=== PATIENT | female | born 1995 | race African-American/Black ===

== ENCOUNTER 2017-11-21 18:34 | Emergency (ER) | payer OTHER, SELFPAY ==
[2017-11-21] MEDS ORDERED: Acetaminophen 500 MG TAB ONE (19:19)
[2017-11-21 19:28] LABS: Bilirubin Negative (Negative); Blood, Urine Negative (Negative); Clarity CLEAR (Clear); Glucose, Urine (Dipstick) Negative (Negative); Leukocyte Negative (Negative); Nitrite Negative (Negative); Protein, Urine (Dipstick) Negative (Neg-Trace); Specific Gravity, Urine 1.015 (1.002-1.036); Urobilinogen 0.2 mg/dL (0.2-1.0); pH, Urine 5.5 (5.0-9.0)
[2017-11-21] MEDS ORDERED: Metoclopramide HCl 10 MG/2 ML VIAL ONE (21:23)
--- NOTE | 2017-11-21 23:32 | ULT ---
OBSTETRICAL ULTRASOUND 11/21/17 COMPARISON: None. HISTORY: 22-year-old female with pain and lower abdominal cramping. TECHNIQUE: Multiplanar shukla scale sonographic imaging of the gravid uterus obtained. FINDINGS: A twin gestation is noted. Fetus A demonstrates an oblique breech presentation with a heart rat e of 145 beats per minute. Placenta is located posteriorly demonstrating no evidence for previa or ab ruption. There is a heterogeneously hypoechoic mass associated with the uterus left of midline measuring 6.2 x 6.1 x 4.2 cm suggesting a uterine fibroid. Fetus B demonstrates a transverse presentation and a heart rate of 155 beats per minute. anatom y is not assessed on this examination. Cervical length is 4.6 cm, within normal limits. Amniotic flui d volume is qualitatively normal. BIOMETRY: Fetus A BPD 4.3 cm 19 weeks, 0 days HC 16.1 cm 18 weeks, 6 days AC 14.3 cm 19 weeks, 5 days FL 2.8 cm 18 weeks, 5 days Fetus B BPD 4.1 cm 18 weeks, 3 days HC 15.1 cm 18 weeks, 1 day AC 13.1 cm 18 weeks, 4 days FL 2.9 cm 18 weeks, 5 days Average age based on ultrasound for fetus A is 19 weeks, 1 day and for fetus B is 18 weeks, 3 days. E stimated weight for fetus A is 278 grams, +/- 41 grams. For fetus B is 248 grams +/- 37 grams. IMPRESSION: Twin gestation as above. POS: [facility]
== END 2017-11-21 23:19 | disposition home or self-care (01) ==
LOC: ERS 18:34
DX: O99.89 Other specified diseases and conditions complicating pregnancy, childbirth and the puerperium (principal); R10.30 Lower abdominal pain, unspecified; Z3A.18 18 weeks gestation of pregnancy; Z87.891 Personal history of nicotine dependence; Z79.82 Long term (current) use of aspirin; Z79.899 Other long term (current) drug therapy
CPT/HCPCS: 36415; 76810; 81003; 84702; 96361; 96374; J2765

== ENCOUNTER 2017-11-22 19:27 | Emergency (ER) | payer OTHER ==
[2017-11-22 19:53] LABS: Bilirubin Negative (Negative); Blood, Urine Negative (Negative); Clarity CLEAR (Clear); Glucose, Urine (Dipstick) Negative (Negative); Leukocyte Trace (Negative); Nitrite Negative (Negative); Protein, Urine (Dipstick) Negative (Neg-Trace); Specific Gravity, Urine 1.006 (1.002-1.036); Urobilinogen 0.2 mg/dL (0.2-1.0); pH, Urine 6.5 (5.0-9.0)
[2017-11-22 19:55] LABS: Bacteria/HPF Rare-Few HPF (None Seen); Hyaline Casts/LPF 0-3 HYALINE CAST LPF (0-3 Hyaline); Pathc Cast-AUWi Flag 0.13 (0-2.49); RBC/HPF 0-3 HPF (0-3); Squamous Epithelial 0-3 HPF (0-3); WBC/HPF 0-3 HPF (0-3)
[2017-11-22 20:12] LABS: Hemoglobin 10.5 g/dL (12.0-16.0); Mean Corpuscular HGB CONC 33.4 g/dL (32.0-36.0); Mean Corpuscular Hemoglobin 25.1 pg (27.0-31.0); Mean Platelet Volume 8.2 fL (7.4-10.4); Platelet Count 269 thou/uL (130-400); RBC Distribution Width 14.7 % (11.5-14.5); Red Blood Cell (RBC) Count 4.18 mill/uL (4.20-5.40); White Blood Cell (WBC) Count 9.4 thou/uL (4.8-10.8)
[2017-11-22 20:27] LABS: #Eosinphils 0.1 thou/uL (0.0-0.7); #Lymphocytes 1.6 thou/uL (1.20-3.40); #Monocytes 0.8 thou/uL (0.11-0.59); %Eosinophils 0.9 % (0.0-10.0); %Lymphocytes 16.7 % (21.0-51.0); %Neutrophils 74.4 % (42.0-75.0); MDiff Complete? YES; Microcytosis SLIGHT = 6-15 cells (100X) (0-5/hpf); PLT Morphology Comment Appears Adequate
[2017-11-22 20:29] LABS: BHCG - Serum POSITIVE (NEGATIVE); Pregs Control Background? CLEAR/WHITE (CLR/WHITE); Pregs Control Bar Appear? YES (CONTROL BAR)
[2017-11-22 20:31] LABS: ALT (SGPT) 14 U/L (8-55); AST (SGOT) 13 U/L (5-34); Albumin 3.8 g/dL (3.5-5.0); Alkaline Phosphatase 65 U/L (40-150); Anion Gap 17 mmol/L (10-20); BUN (Urea Nitrogen) 4 mg/dL (7.0-18.7); Bilirubin, Total 0.3 mg/dL (0.2-1.2); Calc. Creatinine Clearance 0 mL/min (70-130); Calcium 9.5 mg/dL (7.8-10.44); Carbon Dioxide 18 mmol/L (22-29); Chloride 103 mmol/L (98-107); Estimated GFR-MDRD Greater than 90; Globulin 3.7 g/dL (2.4-3.5); Glucose 78 mg/dL (70-105); Lipase 70 U/L (8-78); Potassium 3.5 mmol/L (3.5-5.1); Protein, Total 7.5 g/dL (6.0-8.3); Sodium 134 mmol/L (136-145)
[2017-11-22] MEDS ORDERED: diphenhydrAMINE 50 MG/ML VIAL ONE (21:04)
[2017-11-22] MEDS ORDERED: Metoclopramide HCl 10 MG/2 ML VIAL ONE (21:04)
--- NOTE | 2017-11-22 22:59 | ULT ---
ABDOMINAL ULTRASOUND 11/22/17 HISTORY: Abdominal pain, with 18 week gestation twins. TECHNIQUE: Multiplanar shukla scale sonographic imaging of the abdomen obtained. FINDINGS: The pancreas appears grossly unremarkable. Imaged IVC and aorta appear within normal limits as well. No focal liver lesion or intrahepatic biliary dilatation is noted. Gallstones and gallbladder sludge noted within the gallbladder lumen. No pericholecystic fluid or gal lbladder wall thickening. The paraprofessional education assistant reports a negative Cason's sign. The common bile duct maninder ures 3-4 mm, within normal limits. There is a 2.1 cm cyst within the upper pole of the right kidney. The appendix cannot be visualized o n this exam. The spleen measures up to 11 cm, within normal limits. Right kidney measures 12.6 cm in craniocaudal dimension and left kidney measures 13.7 cm in craniocau neli dimension. There is no significant hydronephrosis seen on either side. IMPRESSION: Cholelithiasis and gallbladder sludge with no evidence for cholecystitis or biliary dilatation. POS: [facility]
== END 2017-11-23 00:11 | disposition home or self-care (01) ==
LOC: ERS 19:27
DX: O99.89 Other specified diseases and conditions complicating pregnancy, childbirth and the puerperium (principal); R10.32 Left lower quadrant pain; Z3A.18 18 weeks gestation of pregnancy; Z87.891 Personal history of nicotine dependence; Z79.82 Long term (current) use of aspirin
CPT/HCPCS: 36415; 76700; 80053; 81003; 81015; 83690; 84703; 85025; 96365; 96366; 96372; 96375; J1200; J2765

== ENCOUNTER 2017-12-12 10:43 | Outpatient (CLI) | payer OTHER | END 2017-12-12 10:44 | disposition home or self-care (01) | LOC: BICULT 10:43 | PROVIDERS: ATTEND Nurse Practitioner | DX: N63.10 Unspecified lump in the right breast, unspecified quadrant; Z80.3 Family history of malignant neoplasm of breast ==

== ENCOUNTER 2017-12-24 04:39 | Day surgery (SDC) | payer OTHER ==
[2017-12-24] MEDS ORDERED: Promethazine HCl 25 MG/ML VIAL IM PRN (06:11)
[2017-12-24 06:19] VITALS: BP 110/72; TEMP 98.6; BMI 47.0
--- NOTE | 2017-12-24 06:44 | PDOC.LDHP ---
Labor and Delivery H&P Chief complaint: abdominal pain HPI: 22 y/o G1 at 23w1d, patient of Dr. Jeff (), presents with right sided abdominal and back pain. Reports history of kidney stones earlier in . Denies VB, LOF, ctx or other concerns. ROS neg for HEENT, cv, pulm, gi, gu, neuro, psych, skin, or musculoskeletal or constitutional symptoms other than mentioned above. OB History Details: First Current complications: di/di twins Current medications: pre- vitamins Previous surgical history: none Allergies/Adverse Reactions: Allergies Allergy/AdvReac Type Severity Reaction Status Date / Time No Known Drug Allergies Allergy Verified 12/24/17 05:08 Social history: none - Physical Exam Vital signs reviewed and normal: yes General: NAD, other (visibly uncomfortable) Lungs: nonlabored breathing Abdomen: gravid Extremeties: no edema - Assessment 22 y/o G1 at 23w1d with gallstones, but no e/o thickening or CBD obstruction. No e/o kidney stones. status reassuring with +FHTs x 2 on ultrasound. - Plan -: Given Demerol and Phenergan. Does not have a ride so will stay until she can get a ride or medication wears off.
--- NOTE | 2017-12-24 07:55 | ULT ---
RIGHT UPPER QUADRANT ULTRASOUND: HISTORY: History of kidney stones with right-sided abdominal pain. FINDINGS: There are some nonshadowing small echogenicities scattered throughout the gallbladder probably repres enting sludge over small stones, although it would be certainly difficult to exclude nonshadowing sma ll stones. No gallbladder wall thickening or pericholecystic fluid. Common bile duct is 0.3 cm. Th ere is some moderate right renal hydronephrosis with an approximately 2.5 x 3 cm diameter upper pole right renal cyst. Visualized bladder is unremarkable. IMPRESSION: Scattered small nonshadowing opacities within the gallbladder, probably more likely sludge, although tiny nonobstructing stones can have a similar appearance, but there is no gallbladder wall thickening or pericholecystic fluid or ductal dilatation. Right renal hydronephrosis with a right renal cyst. POS: [facility]
--- NOTE | 2017-12-24 08:10 | ULT ---
LIITED OBSTETRICAL ULTRASOUND: DATE: 12/24/17. COMPARISON: None. HISTORY: A 22-year-old female with twin gestation, evaluate for heart rate. FINDINGS: A twin gestation is confirmed. The fetus labeled Twin A demonstrates an oblique/transverse presentat ion with head to maternal right. The placenta is located posteriorly, demonstrating no evidence for previa or abruption. heart rate for Twin A is 133 b.p.m. Twin B demonstrates a vertex presentation with a posterior placenta also demonstrating no evidence fo r previa or abruption. heart rate for fetus B is 152 b.p.m. The anatomy is not fully as sessed on this examination. Imaged anatomy for fetus A appears unremarkable, but the spine, um bilical cord insertion, intracranial contents, and nose/lips were not visualized for fetus A. Imaged anatomy for fetus B appears normal as well. However, spine, cord insertion, intracrania l contents, and nose/lips of fetus B were not visualized either. BIOMETRY: Fetus A: BPD 5.2 cm, 21 weeks 5 days HC 20.7 cm, 22 weeks 5 days AC 14.9 cm, 22 weeks 6 days FL 3.9 cm, 22 weeks 5 days Estimated weight is 526 gm +/- 78 grams with an average age based on ultrasound 22 weeks 2 days . Fetus B: BPD 5.7 cm, 23 weeks 3 days HC 21.6 cm, 23 weeks 4 days AC 18.8 cm, 23 weeks 4 days FL 4.1 cm, 23 weeks 3 days Average age based on ultrasound is 23 weeks 1 day and estimated weight is 599 gm +/- 89 gm. IMPRESSION: Twin gestation as above. Full anatomic survey is advised on a nonemergent basis. POS: [facility]
[2017-12-24 10:17] LABS: #Basophils 0.1 thou/uL (0.0-0.2); #Eosinphils 0.1 thou/uL (0.0-0.7); #Lymphocytes 1.5 thou/uL (1.20-3.40); #Monocytes 0.6 thou/uL (0.11-0.59); #Neutrophils 4.3 thou/uL (1.40-6.50); %Eosinophils 1.3 % (0.0-10.0); %Lymphocytes 23.2 % (21.0-51.0); %Neutrophils 65.4 % (42.0-75.0); Hemoglobin 10.1 g/dL (12.0-16.0); Mean Corpuscular HGB CONC 32.1 g/dL (32.0-36.0); Mean Corpuscular Hemoglobin 24.7 pg (27.0-31.0); Mean Corpuscular Volume 76.9 fl (81.0-99.0); Mean Platelet Volume 8.2 fL (7.4-10.4); Platelet Count 282 thou/uL (130-400); RBC Distribution Width 13.6 % (11.5-14.5); Red Blood Cell (RBC) Count 4.08 mill/uL (4.20-5.40); White Blood Cell (WBC) Count 6.6 thou/uL (4.8-10.8)
[2017-12-24 10:38] LABS: ALT (SGPT) 11 U/L (8-55); AST (SGOT) 13 U/L (5-34); Albumin 3.3 g/dL (3.5-5.0); Alkaline Phosphatase 78 U/L (40-150); Anion Gap 10 mmol/L (10-20); BUN (Urea Nitrogen) Less than 4 mg/dL (7.0-18.7); Bilirubin, Total 0.3 mg/dL (0.2-1.2); Calc. Creatinine Clearance 355 mL/min (70-130); Calcium 9.1 mg/dL (7.8-10.44); Carbon Dioxide 24 mmol/L (22-29); Chloride 106 mmol/L (98-107); Estimated GFR-MDRD Greater than 90; Globulin 3.3 g/dL (2.4-3.5); Glucose 82 mg/dL (70-105); Potassium 3.5 mmol/L (3.5-5.1); Protein, Total 6.6 g/dL (6.0-8.3); Sodium 136 mmol/L (136-145)
--- NOTE | 2017-12-24 11:26 | PRG ---
DATE OF SERVICE: 12/24/2017 ADDENDUM HISTORY OF PRESENT ILLNESS: The patient is a 22-year-old female, patient of Dr. Jeff who presented with abdominal pain and diagnosed with gallstones by Dr Barroso early this morning. The patient early this morning was given Demerol and Phenergan for pain control and did not have a ride home, so was given opportunity to sleep off the Phenergan and Demerol. Please refer to Dr Barroso's note for details. The patient reports now that she is feeling a lot better. Pain is not completely gone, but much improved and is ready to discharge home. She sees Dr. Jeff this Friday. Vital signs this morning; 134/79, heart rate of 90, respiratory rate of 20, temperature 98.6. She is being discharged to home and without any medication. She has been counseled on foods to avoid with gallstones and again has follow up with her primary on Friday. COURTNEY
== END 2017-12-24 11:20 | disposition home or self-care (01) ==
LOC: ERS 04:39 → L&D/OP 04:39 → EDSTATUS 18:54
PROVIDERS: ATTEND Student in an Organized Health Care Education/Training Program
DX: O99.612 Diseases of the digestive system complicating pregnancy, second trimester (principal); K80.20 Calculus of gallbladder without cholecystitis without obstruction; O30.042 Twin pregnancy, dichorionic/diamniotic, second trimester; Z3A.23 23 weeks gestation of pregnancy; Z79.899 Other long term (current) drug therapy
CPT/HCPCS: 36415; 76705; 76816; 80053; 85025; 96372; 99283; J2175; J2550

== ENCOUNTER 2017-12-30 12:54 | Outpatient (CLI) | payer OTHER | END 2017-12-30 12:55 | disposition home or self-care (01) | LOC: BICULT 12:54 | PROVIDERS: ATTEND Student in an Organized Health Care Education/Training Program | DX: N63.10 Unspecified lump in the right breast, unspecified quadrant (principal) | CPT/HCPCS: 19100; 76942 ==

== ENCOUNTER 2018-01-01 11:20 | Inpatient (IN) | payer OTHER ==
[2018-01-01] MEDS ORDERED: Promethazine HCl 25 MG/ML VIAL IM PRN ×2 (11:41→13:05)
[2018-01-01] MEDS ORDERED: Ondansetron HCl/PF 4 MG/2 ML Vial IVP PRN ×3 (11:41→13:05)
[2018-01-01] MEDS ORDERED: LR / Pitocin 40 units/1000 ml 1,000 ML IV PRN (11:44)
[2018-01-01] MEDS ORDERED: Lidocaine 1% (PF) 30 ML VIAL SC PRN (11:44)
[2018-01-01] MEDS ORDERED: CEFAZOLIN/Water 2 GM/20 ML SYRINGE SLOW IVP SCH (11:45)
[2018-01-01] MEDS ORDERED: Betamet Acet/Betamet Na Ph 30 MG/5 ML VIAL IM SCH (11:45)
[2018-01-01] MEDS ORDERED: Lactated Ringer's 1,000 ML IV SCH (11:45)
[2018-01-01] MEDS ORDERED: Calcium Gluconate 4.6 MEQ in Sodium Chloride 0.9% 100 ML IVPB PRN (11:49)
[2018-01-01] MEDS ORDERED: Magnesium Sulfate 20 gm/500 ml 20 GM/500 ML BAG ONE (11:53)
[2018-01-01] MEDS ORDERED: Magnesium Sulfate 20 GM/WATER 500 ML BAG IVPB SCH (12:00)
[2018-01-01] MEDS ORDERED: Magnesium Sulfate 20 gm/500 ml 20 GM/500 ML BAG IVPB SCH (12:00)
[2018-01-01] MEDS ORDERED: Bicitra 30 ML UDCUP PO SCH (12:00)
[2018-01-01 12:18] LABS: Hemoglobin 10.1 g/dL (12.0-16.0); Mean Corpuscular HGB CONC 34.1 g/dL (32.0-36.0); Mean Corpuscular Hemoglobin 25.9 pg (27.0-31.0); Mean Platelet Volume 8.1 fL (7.4-10.4); Platelet Count 335 thou/uL (130-400); RBC Distribution Width 13.4 % (11.5-14.5); White Blood Cell (WBC) Count 7.4 thou/uL (4.8-10.8)
[2018-01-01] MEDS ORDERED: Lidocaine 1% PF 5 ML VIAL ONE (12:37)
[2018-01-01] MEDS ORDERED: ePHEDrine/0.9% NaCl/PF SYRINGE 50 mg/10 ml ONE (12:37)
[2018-01-01] MEDS ORDERED: Oxytocin 10 UNITS/ML VIAL ONE ×3 (12:37→13:47)
[2018-01-01] MEDS ORDERED: Bupivacaine 0.75% W/DEXTROSE 8.25% 2 ML AMP ONE (12:37)
[2018-01-01] MEDS ORDERED: Morphine PF 1 MG/ML SYR ONE (12:39)
[2018-01-01 12:54] LABS: Syphilis Antibody Nonreactive (Nonreactive); Syphilis Antibody Index 0.04 S/CO (<1.00 Non-Reactive)
[2018-01-01] MEDS ORDERED: Midazolam HCl 2 mg/2 ml Vial ONE (12:59)
[2018-01-01 13:01] LABS: HBSAg Index 0.22 S/CO (0-0.99); HIV (1/2) Antibody/Antigen Non-Reactive (NonReactive); HIV 1/2 INDEX 0.07 S/CO (<1.00); Hep B Surf Ag Non-Reactive S/CO (NonReactive)
[2018-01-01] MEDS ORDERED: HYDROmorphone 2 MG/ML VIAL SLOW IVP PRN (13:05)
[2018-01-01] MEDS ORDERED: diphenhydrAMINE 50 MG/ML VIAL IM PRN (13:05)
[2018-01-01] MEDS ORDERED: Meperidine HCl/PF 25 MG/ML VIAL SLOW IVP PRN (13:05)
[2018-01-01] MEDS ORDERED: diphenhydrAMINE 50 MG/ML VIAL IVP PRN (13:05)
[2018-01-01] MEDS ORDERED: Morphine CADD 1 MG/ML CADD IVPB PRN (13:05)
[2018-01-01] MEDS ORDERED: Naloxone HCl 0.4 mg/ml Vial IV PRN (13:05)
[2018-01-01] MEDS ORDERED: diphenhydrAMINE 25 MG CAP PO PRN (13:05)
[2018-01-01] MEDS ORDERED: Zolpidem Tartrate 5 MG TAB PO PRN (13:05)
[2018-01-01] MEDS ORDERED: Fentanyl 100 MCG/2 ML VIAL ONE (13:06)
[2018-01-01] MEDS ORDERED: Communication Order-Pharmacy FS SCH (13:15)
[2018-01-01] MEDS ORDERED: Ketorolac Tromethamine 30 MG/ML VIAL IVP SCH (13:15)
[2018-01-01 13:23] VITALS: BMI 43.7
[2018-01-01] MEDS ORDERED: PROPOFOL 200 MG/20 ML VIAL ONE (13:24)
[2018-01-01] MEDS ORDERED: PHENYLEPHRINE-NS 100 MCG/ML 10 ML SYRINGE ONE (13:24)
[2018-01-01] MEDS ORDERED: Succinylcholine Chloride 20 MG/ML 10 ml SYRINGE FS ONE (13:24)
[2018-01-01] MEDS ORDERED: Meperidine HCl/PF 25 MG/ML VIAL ONE (14:50)
[2018-01-01] MEDS ORDERED: Ketorolac Tromethamine 30 MG/ML VIAL ONE (15:25)
[2018-01-01] MEDS: Ketorolac Tromethamine 30 MG/ML VIAL IVP PRN ×2 (15:40→23:27)
--- NOTE | 2018-01-01 16:10 | HP ---
DATE OF ENCOUNTER: 01/01/2018 PRIMARY DIRECTOR CLINICAL INFORMATION SERVICES: Dr. Dina Jeff at [facility]. CHIEF COMPLAINT: Vaginal bleeding, leakage of fluid, and abdominal pains. HISTORY OF PRESENT ILLNESS: The patient is a 22-year-old G1, P0 female with an intrauterine pregnanc y at 24 weeks with a di/di twin gestation. She reports around 10:30 this morning, she had a sudden l eakage of fluid while she was coughing and began having strong abdominal pains. She has been having vaginal bleeding, and feels like there is something in her vaginal region. The patient denies illnes s, fever, complications with her known gallstones at this time. PAST MEDICAL HISTORY: Morbid obesity, otherwise negative. PAST SURGICAL HISTORY: Negative. SOCIAL HISTORY: Denies drug, alcohol, or tobacco use. ALLERGIES: No known drug allergies. CURRENT MEDICATIONS: vitamins. OBSTETRICAL LABORATORY DATA: Blood type is B positive. Antibody screen is negative. RPR is nonreac tive. HIV is nonreactive. Hepatitis B surface antigen is negative. She is rubella immune. REVIEW OF SYSTEMS: Per HPI. PHYSICAL EXAMINATION: VITAL SIGNS: Blood pressure 139/84, heart rate of 96, respiratory rate of 20, temperature 98.6. GENERAL: She appears to be in some distress, concerned having pains, and worried about her babies. HEAD: Normocephalic, atraumatic. LUNGS: Clear. HEART: Regular. ABDOMEN: Tender to palpation and gravid. EXTREMITIES: Nontender. GENITOURINARY: She has a lot of mucousy bloody discharge along her perineum. Cervix is 3-4 cm dilat ed, 90% effaced with baby at 0 station. heart tracing difficult to assess; however, by holding the monitors in place, we were able to get baby A in the 140s with moderate long-term variability wilkinson ving variables down to the 60s, which became longer lasting with repeated times and shouldering and b isatu B in the 140s with moderate long-term variability. ASSESSMENT: On patient's initial arrival, attempts were made to stop contractions. The patient was bolused with 6 grams of magnesium and given 2 grams of Ancef and betamethasone; however, after monito ring the baby and noticing the deep variables progressively widening and showing other signs of slowe r recovery, a decision was made to proceed with a primary for delivery at 24 weeks as patie nt was only 3-4 cm dilated, though vertex presentation for the baby A. We discussed our concerns wit h the patient. There was some concern that abruption may be developing given the tenderness that she was experiencing. At this point in time, the patient had expressed understanding and desire to proc eed. The patient was taken back to the operating room for a primary .
--- NOTE | 2018-01-01 16:19 | OP ---
DATE OF SURGERY: 01/01/2018 PREOPERATIVE DIAGNOSES: 1. Intrauterine at 24 weeks. 2. Premature rupture of membranes. 3. labor for a suspected abruption. 4. Non-reassuring heart tones. POSTOPERATIVE DIAGNOSES: 1. Intrauterine at 24 weeks. 2. Premature rupture of membranes. 3. labor for a suspected abruption. 4. Non-reassuring heart tones. PROCEDURE PERFORMED: Primary , classical uterine incision. SURGEON: Dr. Cam Tran. ORGANIC CHEMISTRY TEACHER: Dr. Gutierrez. ANESTHESIA: General. ESTIMATED BLOOD LOSS: 800 mL FINDINGS: Baby A in vertex presentation low in the pelvis. Baby B transverse but delivered in vertex. COMPLICATIONS: None. COUNT: Correct. CONDITION: Stable to recovery room. FINDINGS: Babies. Baby A was a male, delivered in vertex presentation with a blood gas of 7.29, pH and weight of 700 grams. Baby B is a female, delivered in vertex presentation, weighing at 630 grams. PROCEDURE IN DETAIL: The patient was taken to the operating room where she was placed under general anesthesia after failed attempt for spinal. She was prepared and draped in the normal sterile fashion with the supine position with a leftward tilt. An incision was made in a Pfannenstiel style down to the level of fascia. Fascia was incised and extended laterally with Zepeda scissors. With the aid of Renae clamps the rectus muscles were dissected off bluntly and sharply both superiorly and inferiorly. Entry into the peritoneum was done so bluntly and extended bluntly with some more sharp dissection of the fascia from the rectus muscle. An Boaz O retractor was then inserted giving better visualization. A classical vertical midline incision was made across the front of the uterus down to the uterine cavity. With a baby A being so low in the pelvis, there was some initial difficulty in delivering having taking care extreme care due to the extreme prematurity and delicacy of these babies. The hysterotomy was extended both superiorly and inferiorly giving more room for easier delivery and the fetus was delivered, body and feet first carefully evacuating the head from the pelvic canal. Cord segment was taken for blood gases and baby was handed off to the waiting attendants for resuscitation. Baby B was then noted to be transverse with the head to the patient's left with some pressure bringing the head to the operative field. The amniotomy was performed and the infant was delivered in vertex presentation to the sterile field. Cord was clamped and cut and the infant was handed off to the waiting attendants for resuscitation. A cord segment was also collected for cord gas. The placentas were removed manually and sent to pathology for review. The uterus was then cleared out of all clot and debris and the hysterotomy was closed with #1 Monocryl in 3 layers using an initial baseball stitch and then horizontal mattress suture and closed the serosal with a baseball stitch. There was good hemostasis noted. Peritoneal cavity was irrigated and then the peritoneum was closed with 2-0 chromic in a running fashion. The fascia was closed with 0 Vicryl in a running fashion and subcutaneous fat was closed with 2 -0 plain gut in 2 layers and the skin was closed with 4-0 Monocryl. The patient was then transferred to recovery room after extubation in stable condition. [facility]NEY
[2018-01-01 17:20] LABS: Amphetamine Not Detected (NotDetected); Barbiturates Screen Not Detected (NotDetected); Benzodiazepine Screen Not Detected (NotDetected); Cocaine Metabolite Screen Not Detected (NotDetected); Medtox Control Line Valid? VALID (VALID); Medtox Reader # READER 1; Methadone Not Detected (NotDetected); Methamphetamine Not Detected (NotDetected); Opiate Screen Not Detected (NotDetected); Oxycodone Screen Not Detected (NotDetected); Phencyclidine (PCP) Not Detected (NotDetected); THC/Cannabinoid Screen Not Detected (NotDetected); Tricyclic Screen Not Detected (NotDetected)
[2018-01-01] MEDS: Lactated Ringer's 1,000 ML IV SCH ×2 (22:21→22:34)
[2018-01-02] MEDS: Lactated Ringer's 1,000 ML IV SCH (04:55)
[2018-01-02] MEDS: Ketorolac Tromethamine 30 MG/ML VIAL IVP PRN (06:10)
[2018-01-02] MEDS ORDERED: Adacel (T-DAP) 0.5 ML VIAL IM ONE (08:32)
[2018-01-02] MEDS ORDERED: Lanolin Ointment 7 GM TUBE TOP PRN (08:32)
[2018-01-02] MEDS ORDERED: HYDROcodone/Acetaminophen 5/325 mg Tablet PO PRN (08:32)
[2018-01-02] MEDS ORDERED: Ondansetron HCl/PF 4 MG/2 ML Vial IVP PRN (08:32)
--- NOTE | 2018-01-02 08:36 | PRG ---
DATE OF SERVICE: 01/02/2018. SUBJECTIVE: The patient is a 22-year-old female postop day #1, status post a classical at 24 weeks gestation for premature rupture of membranes and labor and nonreassuring heart tones. Patient is doing well this morning. She is tolerating p.o., voiding on her own, having decr eased lochia and good pain control. The patient is up and walking around in the room. OBJECTIVE: VITAL SIGNS: Blood pressure is 131/75, temperature 98.7, pulse of 84, respiratory rate of 18, sattin g 98% on room air. GENERAL: She is alert and oriented, cooperative and pleasant to interact with. HEENT: Head is normocephalic, atraumatic. ABDOMEN: Fundus is firm. Incision is clean, dry, and intact. EXTREMITIES: Nontender, nonedematous. LABORATORY STUDIES: Her pre-delivery hemoglobin was 10.1, hematocrit 29.7, platelets is 335,000. Po st-delivery hemoglobin is still pending. ASSESSMENT AND PLAN: The patient is a 22-year-old female postop day #1, status post a classical C-se ction for extreme prematurity twin gestation with labor and premature rupture of membranes an d nonreassuring heart tones. Babies have been shifted to [facility] and for the most par t doing well, as expected. Mom is doing well. Anticipate discharge in the next couple of days.
[2018-01-02] MEDS: HYDROcodone/Acetaminophen 5/325 mg Tablet PO PRN ×3 (09:00→17:11)
[2018-01-02] MEDS: Prenatal Vitamin 1 TAB PO SCH (09:00)
[2018-01-02 12:04] LABS: Hemoglobin 9.7 g/dL (12.0-16.0); Mean Corpuscular HGB CONC 32.7 g/dL (32.0-36.0); Mean Corpuscular Hemoglobin 24.9 pg (27.0-31.0); Mean Corpuscular Volume 76.3 fl (81.0-99.0); Mean Platelet Volume 7.9 fL (7.4-10.4); Platelet Count 391 thou/uL (130-400); RBC Distribution Width 13.5 % (11.5-14.5); White Blood Cell (WBC) Count 14.7 thou/uL (4.8-10.8)
[2018-01-02] MEDS: Ibuprofen 800 MG TAB PO SCH ×2 (13:48→21:17)
[2018-01-03] MEDS: HYDROcodone/Acetaminophen 5/325 mg Tablet PO PRN ×2 (03:39→08:06)
[2018-01-03] MEDS: Ibuprofen 800 MG TAB PO SCH (05:54)
--- NOTE | 2018-01-03 06:29 | PDOC.PP ---
Post Progress Note Post Day #: POD#2 Subjective: Resting comfortably. No complaints. PO intake tolerated: yes Flatus: yes Ambulation: yes Vital Signs (12 hours) Temp Pulse Resp BP 01/03/18 04:30 98.4 F 85 18 128/62 01/02/18 23:59 97.9 F 77 20 128/62 01/02/18 20:00 98.2 F 80 20 121/67 Weight Weight 138.346 kg - Physical Examination General: NAD Respiratory: non-labored breathing Abdominal: no distention Extremities: negative homans (B) Skin: CS incision dry & intact Psychiatric: normal affect Result Diagrams: 01/02/18 11:48 Additional Labs: Post Labs Blood Type B POSITIVE 01/01/18 12:05 Hep Bs Antigen Non-Reactive S/CO (NonReactive) 01/01/18 12:05 - Assessment/Plan Doing very well. Advance diet. Ambulate hallway.
[2018-01-03] MEDS: Prenatal Vitamin 1 TAB PO SCH (08:05)
[2018-01-03 08:40] VITALS: BP 140/76; TEMP 98.8
--- NOTE | 2018-01-03 17:22 | DIS ---
DATE OF ADMISSION: 01/01/2018 DATE OF DISCHARGE: 01/03/2018 ADMITTING DIAGNOSES: 1. Premature rupture of membranes. 1. labor. 2. Nonreassuring heart tones. 3. Di/di twin gestation. 4. A 24-week gestation. DISCHARGE DIAGNOSES: 1. Premature rupture of membranes. 1. labor. 2. Nonreassuring heart tones. 3. Di/di twin gestation. 4. A 24-week gestation. PROCEDURE: Classical section. HOSPITAL COURSE: The patient is a 22-year-old female who presented to labor and delivery after her w ater broke at home around 10:30 after coughing. She quickly ensued with contractions and pain and up on arrival, the patient was noted to be 3-4 cm dilated with a presenting baby A presenting in vertex presentation. Attempts to stall labor were made. Betamethasone and antibiotics were given. However , baby a continued to have worsening and more severe variables with longer recovery times, however sh ort period of time. These findings prompted the decision to proceed with a primary for neftali hauser. Babies were delivered by classical . For complete details, please refer to the oper ative note. The procedure was uncomplicated and patient was transferred to for recovery. After recovery, today is postop day #2, the patient has had a remarkable postoperative recovery. Tahir braun is ambulating well, tolerating p.o., voiding on her own, having great pain control. Patient on pos top day #1 is anxious to go home as her babies were transferred to [facility] for care at this time. PHYSICAL EXAMINATION: VITAL SIGNS: Today blood pressure 140/76, temperature 98.8, pulse is 76, respiratory rate of 20. GENERAL: She appears to be in no acute distress. She is alert and oriented, cooperative and pleasan t to interact with. HEENT: Head is normocephalic, atraumatic. ABDOMEN: Fundus is firm. Her incision is clean, dry, and intact, covered with a silver impregnated dressing. EXTREMITIES: Nontender, nonedematous. LABORATORY DATA: Her postop hemoglobin is 9.7, hematocrit 29.8, platelets 391,000. ASSESSMENT AND PLAN: The patient is being discharged to home with ibuprofen and tramadol #20 for solange n control. The patient has instructions to follow up with her primary OB, Dr. Dina Jeff at [facility] in 2 weeks for incision check. She has also been given instructions to seek medica l attention sooner if she experiences fever, increasing pain, bleeding, drainage from her incision re dness or hardness in her incision site.
== END 2018-01-03 10:45 | disposition home or self-care (01) | DRG 765 ==
LOC: L&D/OP 11:20 → L&D 12:08 → 3SW 18:02
PROVIDERS: ADMIT Obstetrics & Gynecology; ATTEND Student in an Organized Health Care Education/Training Program
PROC: 10D00Z1 Extraction of Products of Conception, Low, Open Approach (ICD-10-PCS; principal; 2018-01-01)
DX: O42.012 Preterm premature rupture of membranes, onset of labor within 24 hours of rupture, second trimester (principal); O30.042 Twin pregnancy, dichorionic/diamniotic, second trimester; Z37.2 Twins, both liveborn; Z3A.24 24 weeks gestation of pregnancy; O76 Abnormality in fetal heart rate and rhythm complicating labor and delivery
CPT/HCPCS: 36415; 51702; 76815; 80306; 83735; 85027; 86780; 86850; 86900; 86901; 87340; 87389; 88307; 99285; J0702; J1885; J2001; J2175; J2250; J2274; J2590; J2704; J3010; J3475; J3490

== ENCOUNTER 2018-01-05 23:30 | Emergency (ER) | payer OTHER | END 2018-01-06 01:00 | disposition left against medical advice (07) | LOC: ERS 23:30 | DX: Z53.21 Procedure and treatment not carried out due to patient leaving prior to being seen by health care provider (principal) ==

== ENCOUNTER 2021-10-17 11:50 | Emergency (ER) | payer SELFPAY ==
[2021-10-17] MEDS ORDERED: Acetaminophen 500 MG TAB ONE (12:50)
[2021-10-17 13:14] LABS: Bilirubin Negative (Negative); Blood, Urine Negative (Negative); Glucose, Urine (Dipstick) Negative (Negative); Ketone, Urine Negative (Negative); Leukocyte Negative (Negative); Nitrite Negative (Negative); Protein, Urine (Dipstick) Negative (Neg-Trace); Specific Gravity, Urine 1.025 (1.005-1.030); Urobilinogen 0.2 mg/dL (Less than 2); pH, Urine 5.5 (5.0-9.0)
[2021-10-17 13:19] LABS: Clarity Clear (Clear); Pregnancy Test - Urine (BHCG) POSITIVE (Negative); Pregu Control Background? CLEAR/WHITE (CLR/WHITE); Pregu Control Bar Appear? YES (CONTROL BAR); Specific Gravity 1.025 (1.002-1.036)
[2021-10-17 13:21] LABS: Bacteria/HPF None Seen HPF (None Seen); RBC/HPF None Seen HPF (0-3); WBC/HPF None Seen HPF (0-3)
[2021-10-17 22:53] LABS: SARS-CoV-2 PCR by NAA DETECTED (NotDetected)
== END 2021-10-17 13:56 | disposition home or self-care (01) ==
LOC: ERS 11:50
DX: O98.511 Other viral diseases complicating pregnancy, first trimester (principal); U07.1 COVID-19
CPT/HCPCS: 81003; 81025; 87804; 99283; U0003; U0005

== ENCOUNTER 2024-09-03 18:09 | Emergency (ER) | payer SELFPAY ==
[2024-09-03] MEDS ORDERED: Acetaminophen 500 MG TAB ONE (18:17)
[2024-09-03] MEDS ORDERED: Ibuprofen 800 MG TAB ONE (18:17)
[2024-09-03] MEDS ORDERED: Ondansetron ODT 4 MG TAB ONE (20:32)
== END 2024-09-03 21:09 | disposition home or self-care (01) ==
LOC: ERS 18:09
DX: J06.9 Acute upper respiratory infection, unspecified (principal); Z20.828 Contact with and (suspected) exposure to other viral communicable diseases
CPT/HCPCS: 87428; 99283; Q0162